=== PATIENT | male | born 1990 | race Caucasian/White ===

== ENCOUNTER 2020-02-09 09:59 | Emergency (ER) | payer OTHER ==
[~2020-02-09] VITALS: Ht 190.5 cm; Wt 127.0 kg
[2020-02-09 10:32] LABS: ABSOLUTE BASOPHILS 0.1 thou/uL (0.0-0.2); ABSOLUTE LYMPHOCYTES 3.7 thou/uL (0.8-5.3); ABSOLUTE MONOCYTES 0.6 thou/uL (0.0-1.2); ABSOLUTE NEUTROPHILS 9.3 thou/uL (1.6-8.1); BASOPHILS 0.9 %; EOSINOPHILS 0.4 %; HEMATOCRIT 46.7 % (42.0-52.0); HEMOGLOBIN 16.5 gm/dL (14.0-18.0); LYMPHOCYTES 26.8 %; MCH 30.7 pg (26.0-34.0); MCHC 35.4 g/dL (28.0-37.0); MCV 86.5 fL (80.0-100.0); MPV 7.3 fl. (7.2-11.1); NUCLEATED RBCS 0 /100WBC; PLATELET COUNT* 234 thou/uL (150-400); POLYS 67.9 %; RBC 5.39 mil/uL (4.50-6.00); WBC 13.7 thou/uL (4.0-11.0)
[2020-02-09 10:40] LABS: CALCIUM 8.1 mg/dL (8.5-10.1); CREATININE 1.2 mg/dL (0.6-1.3); POTASSIUM 4.4 mmol/L (3.5-5.1)
[2020-02-09 10:45] LABS: ALBUMIN 4.3 g/dL (3.4-5.0); TOTAL BILIRUBIN 0.4 mg/dL (<0.1-1.0); TOTAL PROTEIN 7.9 g/dL (6.4-8.2)
[2020-02-09] MEDS ORDERED: LEVAQUIN 500 M500 MG PO (11:28)
[2020-02-09] MEDS ORDERED: VENTOLIN HFA 1818 GM INH (11:28)
[2020-02-09 11:33] VITALS: BP 119/60
== END 2020-02-09 11:35 | disposition home or self-care (01) ==
LOC: M.ERS 09:59
PROVIDERS: Family Medicine
DX: S20.222A Contusion of left back wall of thorax, initial encounter (principal); S20.221A Contusion of right back wall of thorax, initial encounter; S80.01XA Contusion of right knee, initial encounter; S80.12XA Contusion of left lower leg, initial encounter; J18.9 Pneumonia, unspecified organism; F10.129 Alcohol abuse with intoxication, unspecified; W11.XXXA Fall on and from ladder, initial encounter; Y93.89 Activity, other specified; Y92.89 Other specified places as the place of occurrence of the external cause; Y99.8 Other external cause status; Y90.8 Blood alcohol level of 240 mg/100 ml or more

== ENCOUNTER → 2021-04-20 | Outpatient (CLI) | payer OTHER ==
[~2021-04-20] MED LIST: LEVAQUIN 500 M500 MG PO; VENTOLIN HFA 1818 GM INH
[2021-04-20 11:58] LABS: HEMATOCRIT 42.5 % (42.0-52.0); HEMOGLOBIN 15.3 gm/dL (14.0-18.0); MCH 30.8 pg (26.0-34.0); MCHC 35.9 g/dL (28.0-37.0); MCV 85.8 fL (80.0-100.0); MPV 6.9 fl. (7.2-11.1); RBC 4.96 mil/uL (4.50-6.00); RDW-CV 13.2 % (10.5-14.5); WBC 7.8 thou/uL (4.0-11.0)
[2021-04-20 12:11] LABS: ALBUMIN 4.4 g/dL (3.4-5.0); CALCIUM 8.9 mg/dL (8.5-10.1); POTASSIUM 4.4 mmol/L (3.5-5.1); TOTAL BILIRUBIN 0.6 mg/dL (<0.1-1.0)
--- NOTE | 2021-04-20 14:41 | EKG ---
[place] [address] ELECTROCARDIOGRAM REPORT Name: CINDY ACEVEDO Room: [facility]#: [id number] Admission: 04/20/21 Attend Phys: Gui Ornelas MD Discharge: Date of : 89 Date of Service: 04/20/21 1112 Report #: [id number] THIS REPORT FOR: //name// [facility] Test Date: 2021-04-20 Test Time: 11:12:41 Pat Name: CINDY ACEVEDO Department: Room: Gender: [employer]: : 1990 Requested By: Gui Ornelas Order Number: [id number] Jennifer MD: Max Porras Measurements Intervals [place] Rate: 56 P: 8 MT: 149 QRS: -18 QRSD: 111 T: 13 QT: 437 QTc: 422 Interpretive Statements Sinus rhythm Borderline left axis deviation ST elev, probable normal early repol pattern Baseline wander in lead(s) III No previous ECG available for comparison Electronically Signed On 04-20-2021 14:41:03 CDT by Max Porras [email or web address] <ELECTRONICALLY SIGNED> By: Max Porras MD, [facility] 04/20/21 1441 1112 1112 Max Porras MD, [facility] /EPI
== END ==
LOC: M.LAB 10:41
PROVIDERS: ATTEND Otolaryngology Plastic Surgery within the Head & Neck
DX: C43.9 Malignant melanoma of skin, unspecified (principal)